=== PATIENT | female | born 1930 | race American Indian/Alaskan Native ===

== ENCOUNTER 2017-05-10 21:10 | Emergency (ER) | payer MEDICARE ==
[~2017-05-10 21:10] MED LIST: ADRENALIN ONE; CORDARONE IV ONE
[2017-05-10] MEDS ORDERED: CORDARONE 900 MG in D5W 482 ML IV SCH (22:00)
--- NOTE | 2017-05-10 23:58 | Emergency Department Report ---
ED CPR HPI - General Chief Complaint: Cardiac Arrest/CPR Stated Complaint: CARDIAC ARREST Time Seen by Provider: 05/10/17 22:25 Source: EMS Mode of arrival: Stretcher Limitations: Altered Mental Status - History of Present Illness MD Complaint: found unresponsive (40 MINUTES PRIOR TO ARRIVAL) Place: home Bystander CPR Performed: No AED Applied by Bystander/Floor And Wall Applier Liquid: Yes Downtime Before ACLS Arrival (mins): 10 (PT LAST SEEN NORMAL 10 MINUTES BEFORE EMS CALLED) Initial Findings in the Field: unresponsive Associated Injuries: No Associated Symptoms: other (UNKNOWN) Treatments Prior to Arrival: intubation, BMV, chest compressions, epinephrine mgs # (1), sodium bicarbonate - Related Data Allergies Allergy/AdvReac Type Severity Reaction Status Date / Time No Known Allergies Allergy Verified 05/10/17 21:35 ED Review of Systems ROS: Stated complaint: CARDIAC ARREST Other details as noted in HPI Comment: Unobtainable due to pts medical conditions ED Past Medical Hx - Past Medical History Previous Medical History?: Yes Additional medical history: OBESITY ED Physical Exam - General Limitations: No Limitations, Altered Mental Status, Physical Limitation - Head Head exam: Present: atraumatic, normocephalic - Eye Eye exam: Present: other (FIXED AN D DILATED) Pupils: Absent: normal accommodation (NON RESPONSIVE) - Neck Neck exam: Present: normal inspection, full ROM - Respiratory Respiratory exam: Present: rales, other (FLUID COMING FROM LUNGS) - Cardiovascular Cardiovascular Exam: Present: other (ASYSTOLE) - GI/Abdominal GI/Abdominal exam: Present: soft. Absent: distended - Rectal Rectal exam: Present: deferred - Extremities Exam Extremities exam: Present: normal inspection - Back Exam Back exam: Present: normal inspection - Neurological Exam Neurological exam: Present: other (NO RESPONSE) - Skin Skin exam: Present: warm ED Course - Reevaluation(s) Reevaluation #1: 05/11/17 00:00 PT HAD A BRIEF PULSE BUT SOLELY DUE TO EPINEPHRINE, THEN PULSE LOST AND NEVER REGAINED. DAUGHTER TOLD US TO STOP CPR Critical care attestation.: If time is entered above; I have spent that time in minutes in the direct care of this critically ill patient, excluding procedure time. ED Disposition Clinical Impression: Pulmonary edema cardiac cause Disposition: DC-20 Is pt being admited?: No Does the pt Need Aspirin: No Condition: Critical Instructions: Pulmonary Edema (ED) Referrals: PRIMARY CARE, [Primary Care Provider] - 3-5 Days
== END 2017-05-11 00:49 ==
LOC: ED 21:10
DX: I46.9 Cardiac arrest, cause unspecified (principal); J81.1 Chronic pulmonary edema
CPT/HCPCS: 92950; 99285; J0171; J0282; J7060